=== PATIENT | female | born 1980 | race African-American/Black ===

== ENCOUNTER 2019-11-25 12:09 | Emergency (ER) | payer MEDICAID ==
[~2019-11-25] VITALS: Ht 160 cm; Wt 63.5 kg
[2019-11-25 12:30] VITALS: BP 145/83
[2019-11-25 13:06] VITALS: BP 145/83
--- NOTE | 2019-11-25 14:32 | Emergency Room Report ---
History of Present Illness General Chief Complaint: Skin Rash/Abscess Present Illness HPI Disclaimer: Please note that this report is being documented using DRAGON technology. This can lead to erroneous entry secondary to incorrect interpretation by the dictating instrument. HPI: 39-year-old female presents with due to feelings of "parasites" under her skin. He states she has felt this way for the past 4 days. She denies any fevers nausea or vomiting. Denies any recent medications, illicit drug use or recent travel. She feels as though the parasites are coming out of her gums and nailbeds. PMH: Patient denies any past medical history PSH: Reviewed Social Hx: She denies any smoking drinking or illicit drug use Allergies: Coded Allergies: MORPHINE (Verified Allergy, Unknown, 11/25/19) Uncoded Allergies: SULFA (Allergy, Unknown, 11/25/19) Review of Systems All Other Systems: negative except mentioned in HPI Physical Exam Vital Signs Date Time Temp Pulse Resp B/P (MAP) Pulse Ox O2 Delivery O2 Flow Rate FiO2 11/25/19 12:24 98.1 115 18 145/83 (103) 97 Room Air Sp02 EP Interpretation: reviewed, normal General Appearance: well appearing, other - Anxious appearing Head: normocephalic, atraumatic Eyes: bilateral eye PERRL, bilateral eye EOMI ENT: hearing grossly normal, moist mucus membranes, other - No intraoral parasites noted. Excoriations noted to the lips Neck: full range of motion, supple Respiratory: lungs clear, normal breath sounds, no rhonchi, no respiratory distress, no retraction, no wheezing Cardiovascular #1: normal peripheral pulses, no murmur, tachycardia Gastrointestinal: non tender, soft, non-distended, no guarding Neurologic: alert, oriented x3, no focal defects Skin: normal color, warm/dry, other - No parasites noted underneath the nailbeds no skin changes no erythema noted Medical Decision Making Diagnostic Impression: Primary Impression: Formication ER Course MDM: Patient presented with feelings of parasites under the skin. Differential included but not limited to scabies, formication, psychiatric disease to name a few. On my exam patient was attempting to demonstrate parasites but I did not visualize any evidence of parasitic illness under the skin in the nailbeds or in the mouth. I explained this to the patient however she was persistent in her believe. Stated at this time I do not see any evidence of parasitic illness. I recommended good hand hygiene, appropriate oral hygiene follow-up with her primary doctor. I did recommend return precautions. Visualize any lesions in the scalp I have her and I did offer her treatment for scabies as patient states she may have come into contact with somebody similar however she eloped prior to official discharge. Plan-patient left prior to officially being discharged with any prescriptions. Last Vital Signs Date Time Temp Pulse Resp B/P (MAP) Pulse Ox O2 Delivery O2 Flow Rate FiO2 11/25/19 13:06 98.1 18 145/83 97 Room Air 11/25/19 12:24 115 Status: unchanged Disposition: HOME, SELF-CARE Condition: Stable Patient Instructions: Contact Precautions, [id number] Additional Instructions: Patient is instructed to follow-up with her primary care doctor, primary care clinic or [facility] in 1 to 2 days. Patient instructed to return for any worsening symptoms or concerns. Disclaimer: Please note that this report is being documented using PostedIn technology. This can lead to erroneous entry secondary to incorrect interpretation by the dictating instrument. Vito Wilson M.D. November 25, 2019 14:32
== END 2019-11-25 13:06 | disposition home or self-care (01) ==
LOC: EMR 13:04
DX: R20.2 Paresthesia of skin (principal); Z88.2 Allergy status to sulfonamides; Z88.5 Allergy status to narcotic agent
CPT/HCPCS: 99282